=== PATIENT | male | born 1970 | race Caucasian/White ===

== ENCOUNTER → 2023-05-17 06:26 | Day surgery (SDC) | payer OTHER, SELFPAY | LOC: GI 06:26 | PROVIDERS: ATTENDING PHYSICIAN Internal Medicine Gastroenterology | DX: Z12.11 Encounter for screening for malignant neoplasm of colon (principal); K57.30 Diverticulosis of large intestine without perforation or abscess without bleeding; K64.8 Other hemorrhoids; K20.0 Eosinophilic esophagitis; R13.10 Dysphagia, unspecified; K22.89 Other specified disease of esophagus; K22.2 Esophageal obstruction; Z83.719 Family history of colon polyps, unspecified | CPT/HCPCS: 43249; 43239; G0105; 88305 ==

== ENCOUNTER → 2024-02-14 06:28 | Day surgery (SDC) | payer OTHER, SELFPAY | LOC: GI 06:28 | PROVIDERS: ATTENDING PHYSICIAN Internal Medicine Gastroenterology | DX: K20.0 Eosinophilic esophagitis (principal) | CPT/HCPCS: 43239; 88305 ==